=== PATIENT | female | born 1980 | race Caucasian/White ===

== ENCOUNTER → 2025-02-15 11:30 | Emergency (ER) | payer OTHER, SELFPAY ==
--- NOTE | ~2025-02-15 | CT_ITS ---
CT brain wo con Ordering provider: Helena Sethi APRN History: 44 years Female with . headache, hx drug use . Comparison: None. Technique: CT of the head without contrast. Radiation reduction technique utilized.The dose-length product was 983.67 mGy-cm. FINDINGS: BRAIN PARENCHYMA AND CSF SPACES: No midline shift, mass effect or hemorrhage. The brain parenchyma a nd CSF spaces are otherwise normal. VISUALIZED PARANASAL SINUSES: Well aerated. MASTOIDS: Well aerated. BONES: The bones appear intact. SOFT TISSUES: Visualized nasopharynx is normal. Superficial soft tissues are normal. IMPRESSION: No acute intracranial findings. Reviewed, dictated and finalized at location A.
[2025-02-15 11:34] VITALS: BP 124/98; PULSE 89; RESP 16; TEMP 36.4; O2SAT 100
--- NOTE | 2025-02-15 11:36 | ECG_ITS ---
Test Date: 2025-02-15 14:58:26 Measurements Intervals [place] Rate: 58 P: 36 PA: 120 QRS: 70 QRSD: 92 T: 51 QT: 505 QTc: 500 Interpretive Statements SINUS BRADYCARDIA MODERATE T-WAVE ABNORMALITY, CONSIDER ANTERIOR ISCHEMIA [-0.1+ mV T WAVE IN V3/V4] No previous ECG available for comparison Electronically Signed On 02-16-2025 15:39:29 CDT by Rene Rivera M.D.
--- NOTE | 2025-02-15 11:37 | ED_ITS ---
HPI - General Adult General Chief complaint: Unspecified Stated complaint: i don't feel right did meth x2 Time Seen by Provider: 02/15/25 11:35 Focused HPI: Patient is a 44-year-old female who presents to the ER from [facility]. She has been in rehab at [facility] and did meth twice this morning. Patient was Narcan once but reports I just do not feel right. She endorses headache, joint pain, abdominal pain, nausea and vomiting. Patient denies chest pain, shortness of breath, back pain, recent fevers. GENERAL: Ill-appearing, well-nourished, and in no acute distress. HEAD: Normocephalic, atraumatic. CHEST: Clear to auscultation. ?No respiratory distress. HEART: Regular rate and rhythm.? NEURO: ?Alert and oriented x3. Patient screened in triage and initial orders placed.? ?Additional care and disposition to be based upon?diagnostic testing and treatment. Related Data Allergies Allergy/AdvReac Type Severity Reaction Status Date / Time No Known Allergies Allergy Verified 02/15/25 11:31 Discharge Plan Discharge Patient Language: Swedish Follow-up/Referrals: PHYSICIAN NOT ON STAFF,NONSTAFF [Primary Care Provider] -
[2025-02-15 12:13] LABS: Basophils Percent Auto 0.5 % (0.2-1.2); Eosinophils Absolute Auto 0.3 K/mm3 (0-0.3); Eosinophils Percent Auto 2.9 % (0-4.4); Hematocrit 41.8 % (37.0-47.0); Hemoglobin 13.5 g/dL (12.0-15.0); Immature Granulocyte Absolute 0.02 K/mm3 (0.00-0.031); Immature Granulocyte Percent A 0.2 % (0-0.5); Lymphocytes Absolute Auto 1.79 K/mm3 (0.9-3.2); Lymphocytes Percent Auto 20.5 % (18.3-44.2); Mean Corpuscular HGB Conc 32.3 g/dl (32-36); Mean Corpuscular Hemoglobin 28.5 pg (26-34); Mean Corpuscular Volume 88.2 fl (80-100); Mean Platelet Volume 8.8 fl (7.4-10.4); Monocytes Absolute Auto 0.5 K/mm3 (0.1-0.6); Neutrophils Absolute Auto 6.1 K/mm3 (1.3-6.7); Neutrophils Percent Auto 69.9 % (45.5-73.1); Platelet Count Result 326 k/mm3 (150-375); Red Blood Count 4.74 M/mm3 (4.2-5.4); Red Cell Distribution Width 13.1 % (11.5-14.5); White Blood Count 8.7 K/mm3 (4.5-10.0)
[2025-02-15 12:23] LABS: Alanine Aminotransferase 21 U/L (6-35); Albumin Level 4.5 g/dL (3.5-5.1); Alkaline Phosphatase 92 U/L (38-126); Anion Gap 9 mmol/L (4-12); Aspartate Amino Transferase 22 U/L (14-36); Bilirubin,Total 0.3 mg/dL (0.2-1.3); Blood Urea Nitrogen 15 mg/dL (7-17); Calcium 9.4 mg/dL (8.4-10.2); Carbon Dioxide 22 mmol/L (22-30); Chloride 108 mmol/L (98-107); Estimated CRCL calculation 98 ml/min; Estimated Glomerular Filt Rate > 60; Glucose 101 mg/dL (65-110); Potassium 4.1 mmol/L (3.4-5.0); Sodium 139 mmol/L (137-145)
--- NOTE | 2025-02-15 12:29 | PC.NURSE ---
RN called pt's name in waiting room multiple times with no response. Pt was looking at RN and asking about another person while RN calling her name that she was not responding to. Pt then walked to intake desk and acted like she knew the patient checking in, placing her hand on other patients wheelchair and told gastrointestinal technician they were here together. The other patient stated that she does not know her. Pt was asked to have a seat back in waiting room by gastrointestinal technician. Pt was again called back to get an EKG completed. Pt refused to have EKG done, states that is for her heart and we have no business looking at her heart. RN explained this was specifically ordered by the provider who saw her, and pt continues to refuse.
--- NOTE | 2025-02-15 13:13 | PC.NURSE ---
Pt ambulated to exit with security. Pt left behind her pill bottles and refused to take them with her. Pt medication left behind was Diclofenac and Citalopram which were both turned into ED charge nurse.
--- NOTE | 2025-02-15 13:34 | PC.NURSE ---
This RN called [facility] and spoke with Albina ARIAS who states this pt has not been formally admitted to their facility yet.
--- NOTE | 2025-02-15 13:45 | PC.NURSE ---
ED security informed this RN that pt was refusing to get on bus and that pt was requesting PD to escort her. ED security contacted Jovanni CHRISTY
--- NOTE | 2025-02-15 14:08 | PC.NURSE ---
patient was walking up to patients in the waiting room and attempting to wheel patients in wheelchairs outside. patient was informed she needs to stop bothering other patients and she proceeded to go into the bathroom. patient was in the restroom for approx 30 minutes and was found in the bathroom with the door unlocked and she was completely naked in the restroom and was informed she needed to come out of the restroom due to other patient's needing to use it. patient was A&Ox4 and able to ambulate with steady gate. patient denied SI/HI to this RN
[2025-02-16 01:54] LABS: Add Urine Microscopic? NO; Appearance Urine Clear (Clear); Bilirubin Urine Negative (Negative); Blood Urine Negative (Negative); Color Urine Yellow (Yellow); Glucose Urine UA Negative (Negative); Ketones Urine Negative (Negative); Leukocyte Esterase Ur Negative LEU/UL (Negative); Nitrate Urine Negative (Negative); Protein Urine Negative (Negative); Urobilinogen Urine 0.2 mg/dL (<2.0)
--- OUTSIDE RECORDS SUMMARY | 2025-02-22 12:38 | XMS_ITS ---
Author Organization [facility] Address [address] [place] [address] Care Team Providers Care Call Center Operator Name Role Phone Sabra Kirkfer Primary Care Provider [phone] Briseida RODRIGUEZ Unavailable Unavailable Manjit Rodriguez Unavailable [phone] Allergies Allergen (clinical drug ingredient) Drug/Non Drug Allergy documented on EMR Reaction Allergy Type Onset Date Status Latex Latex Unknown Allergy Active Results Component Value Reference Range Notes Breathalyzer Reviewed date:02/19/2025 11:46:13 AM Interpretation: Performing Lab: Notes/Report: MICHOACANO 0.000 12 Panel Urine Drug Screen ( Not yet reviewed by provider) Interpretation: Performing Lab: Notes/Report: THC neg BENJAMIN neg MOP (OPI) neg AMP neg MET neg BAR neg BZO POS MDMA neg MTD neg OXY neg PCP neg BUP neg REASON FOR VISIT CRU Physical Social History Tobacco Use: Social History Observation Description Date Details (start date - stop date) Current Smoker NA - NA Tobacco Control (Standard) Question Answer Notes Tobacco use: Current smoker How often do you smoke cigarettes? Every day How many cigarettes a day do you smoke? 31 or mo re Problems Problem Type SNOMED Code ICD Code Onset Dates Problem Status W/U Status Risk Notes Problem Bipolar 1 disorder (589915504) Bipolar 1 disorder (F31.9) Active confirmed Problem Overweight (146346579) Over weight (E66.3) Active confirmed Vital Signs Weight 175.6 lbs 02/19/2025 Height 67 in 02/19/2025 BMI 27.5 kg/m2 02/19/2025 Blood pressure systolic 110 mm Hg 02/20/20 25 Blood pressure diastolic 68 mm Hg 025 Heart Rate 88 /min 02/19/2025 Oximetry 97 % 02/19/2025 Temperature 98.0 degrees Fahrenheit 02/20/20 25 Respiratory Rate 16 /min 02/19/2025 Encounters Encounter Location Date Provider Diagnosis [facility] [address] [facility] [place] [address] 02/19/2025 Manjit Celestinner Methamphetamine abus e F15.10 ; Bipolar 1 disorder F31.9 ; Dental infection K04.7 ; Adult general medical exam Z00.00 ; Exposure to potential infection Z20.9 ; Screening for diabetes mellitus Z13.1 ; Lipid screening Z13.220 ; Medication monitoring encounter Z51.81 ; Fatigue R53.83 and Over weight E66.3 Assessments Encounter Date Diagnosis (ICD Code) Assessment Notes Treatment Notes Treatment Clinical Notes Section Notes 02/19/2025 Methamphetamine abuse (ICD-10 - F15.10) unit protocol 02/19/2025 Bipolar 1 disorder (ICD-10 - F31.9) 02/19/2025 Dental infection (ICD-10 - K04.7) complete antibiotic 02/19/2025 Adult general medical exam (ICD-10 - Z00.00) 02/19/2025 Exposure to potential infection (ICD-10 - Z20.9) 02/19/2025 Screening for diabetes mellitus (ICD-10 - Z13.1) 02/19/2025 Lipid screening (ICD-10 - Z13.220) 02/19/2025 Medication monitoring encounter (ICD-10 - Z51.81) 02/19/2025 Fatigue (ICD-10 - R53.83) 02/19/2025 Over weight (ICD-10 - E66.3) Plan Of Treatment Pending Test Test Name Order Date 12 Panel Urine Drug Screen 02/19/2025 Future Test Test Name Order Date HIV Screen *HIV 1, 2 Ab, p24 Ag ([id number]) 02/19/2025 Hemoglobin A1c* 02/19/2025 CBC With Differential/Platelet* 02/20/20 25 Hepatitis B Surface Antigen (HBsAg Scree n) 02/19/2025 Hepatitis C Virus Antibody w/Rflx to Jose ntitative Real-time PCR ([id number]) 02/19/2025 Lipid Panel* 02/19/2025 CMP 14 Comprehensive Metabolic Panel* TSH Rfx on Abnormal to Free T4 QuantiFERON-TB Gold Plus ([id number]) 2024 Rapid Plasma Reagin (RPR) Te st With Reflex to Quantitative RPR and Confirmatory Treponema pallidum Antibodies 02/19/2025 Next Appt Details Follow Up: prn, Reason: WHIL E IN UNIT Provider Name:Daisy Harmon sd, 02/23/2025 02:00:00 PM, [address] [facility], [place], [address], Progress Notes * Layla MIXDOB:[birth year] (44 yo F)Acc No.[id number]:02/19/2025 Patient: Layla GRAVES Rebecca Provider: Briseida Rodriguez :1980 A ge:44 Y S ex:Female Date:02/19/2025 Address:[address] [place], [place] [id number] Pcp:Lizette Kirk Subjective: * Chief Complaints: * C RU Physical * HPI: S creening: [place] Suicide Severity Rating Scale (LF) D o you want to initiate with S creener form 1 . Wish to be : Have you wished you were or wished you could go to sleep and not wake up? N o 2 . Suicidal Thoughts: Have you actually had any thoughts of killing yourself? N o 6 . Suicide Behavior Question: Have you ever done anything,started to do anything, or prepared to end your life? N o I nterpretation: L ow Risk D epression Screening: PHQ-9 L ittle interest or pleasure in doing things?Several days F eeling down, depressed, or hopeless S everal days T rouble falling or staying asleep, or sleeping too much N ot at all F eeling tired or having little energy S everal days P oor appetite or overeating N ot at all F eeling bad about yourself or that you are a failure, or have let yourself or your family down S everal days T rouble concentrating on things, such as reading the newspaper or watching television S everal M oving or speaking so slowly that other people could have noticed; or the opposite, being so fidgety or restless that you have been moving around a lot more than usual N ot at all T houghts that you would be better off or of hurting yourself in some way N ot at all T otal Score 5 I nterpretation M ild Depression I nterim 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 METH USE. [facility] LEFT [facility]. NO MEDS GIVEN. LEFT TO SEEK TX FOR LEFT UPPER JAW FX TOOTH AND DENTAL INFECTION. CAME TO [facility] 02/15. LAST METH USE 02/15. WAS USING DAILY. DENIED OTHER SUBSTANCE USE. 02/15 WENT TO [facility] THEN TO [facility]. NEW MEDS STARTED. WAS DX MANIC PHASE OF BIPOLAR 1. PRIOR HX OF BIPOLAR 1 FOR SEVERAL YEARS. TX BY [facility] PCP DUE TO LACK OF PSYCH ACCESS. LEFT UPPER JAW DENTAL PAIN IMPROVING WITH AMOXICLAV. NO FEVER. P reventative Health and Wellness follow-up: . * ROS: B asic ROS: Admits P sychiatric Condition. * Medical History: * Surgical History: C eserean Section 2010Skin cancer removed 1992 * Hospitalization/Major Diagno stic Procedure: M ental health crisis 01/2025 * Family History: F ather: alive. M other: alive. 7 brother(s) , 3 sister(s) - healthy. 2 son(s) , 2 daughter(s) . . * Social History: P rimary Social History: L iving Arrangement L iving Arrangement: I ndependent Living I s this a supportive environment? N o Patient states is an addict who is in need of treatment . Single Question Alcohol Screening H ow may times in the past year have you had (4 for women, or 5 for men) or more drinks in a day? 0 T obacco Use: T obacco Control (Standard) T obacco use: C urrent smoker H ow often do you smoke cigarettes? E very day H ow many cigarettes a day do you smoke? 3 1 or more * Medications: * Allergies: L atexno[Allergies Verified] Objective: * Vitals: I nitials: TT, Wt:175.6, Ht: 67, BMI:27.5, BP:110/68, HR:88, Oxygen sat %:97, Temp:98.0, RR:16, LMP: 02/18/2025, Pain scale:7. * Examination: G eneral Examination: GENERAL APPEARANCE: w ell developed, well nourished, in no acute distress. HEAD: n ormocephalic, atraumatic. EYES: P ERRLA, sclera and conjunctiva clear. EARS External ears intact. NOSE: n candy patent, no lesions, septum intact. ORAL CAVITY: m ucosa moist. THROAT: n o erythema, no exudate, pharynx normal. NECK/THYROID: n o JVD, no goiter. SKIN: w arm and dry, no rashes. HEART: r egular rate and rhythm, no murmurs. LUNGS: r espirations regular and easy, clear to auscultation bilaterally. ABDOMEN: b owel sounds present, soft, nontender, nondistended, no masses palpable, no organomegaly . MUSCULOSKELETAL: n o joint deformity, swelling, redness, or warmth , BENJAMIN upper and lower extremities. EXTREMITIES: n o clubbing, cyanosis, or edema. NEUROLOGIC: c ranial nerves 2-12 grossly intact. A ctivity Permissions and Medication Self Administration: Activity Level & Medication Self-Administration Permissions? A ctivity Level Permitted: T he patient/client may fully take part in physical fitness programming including aerobic, muscular strength, and flexibility training without restriction. M edication Self-Administration Permissions:?Medications may be self-administered by the patient/client under the supervision of approved staff or administered by nursing staff. Assessment: * Assessment: 1. M ethamphetamine abuse - F15.10 (Primary) 2 . B ipolar 1 disorder - F31.9 3 . D ental infection - K04.7 4 . A dult general medical exam - Z00.00 5 . E xposure to potential infection - Z20.9 6 . Screening for diabetes mellitus - Z13.1 7 . L ipid screening - Z13.220 ? 8 . M edication monitoring encounter - Z51.81 9 . F atigue - R53.83 1 0. O lovely weight - E66.3 Plan: * Treatment: Value Reference Range T HC neg * C OC neg * M OP (OPI) neg * A MP neg * M ET neg * B AR neg * B ZO POS * M DMA neg * M TD neg * O XY neg * P CP neg * B UP neg Clinical Notes: unit protocol??2.?Dental infection?LAB: CBC With Differential/Platelet* (Ordered for 02/19/2025) (Collection Date & Time - 02/19/2025) Clinical Notes: complete antibiotic??3.?Exposure to potential infection?LAB: Rapid Plasma Reagin (RPR) Test With Reflex to Quantitative RPR and Confirmatory Treponema pallidum Antibodies (Ordered for 02/19/2025) (Collection Date & Time - 02/19/2025) ?LAB: HIV Screen *HIV 1, 2 Ab, p24 Ag ([id number]) (Ordered for 02/19/2025) (Collection Date & Time - 02/19/2025) ?LAB: Hepatitis B Surface Antigen (HBsAg Screen) (Ordered for 02/19/2025) (Collection Date & Time - 02/19/2025) ?LAB: Hepatitis C Virus Antibody w/Rflx to Quantitative Real-time PCR ([id number]) (Ordered for 02/19/2025) (Collection Date & Time - 02/19/2025) ?LAB: QuantiFERON-TB Gold Plus ([id number]) (Ordered for 02/19/2025) (Collection Date & Time - 02/19/2025)4.?Screening for diabetes mellitus?LAB: Hemoglobin A1c* (Ordered for 02/19/2025) (Collection Date & Time - 02/19/2025)5.?Lipid screening?LAB: Lipid Panel* (Ordered for 02/19/2025) (Collection Date & Time - 02/19/2025)6.?Medication monitoring encounter?LAB: CMP 14 Comprehensive Metabolic Panel* (Ordered for 02/19/2025) (Collection Date & Time - 02/19/2025)7.?Fatigue?LAB: TSH Rfx on Abnormal to Free T4 (Ordered for 02/19/2025) (Collection Date & Time - 02/19/2025) * Recommended Wellness and Pre vention Guidelines: * S tatus A lert L ast Done N ext Due A ction Taken N ONCOMPLIANT B reast cancer screening - 0 02/19/2025 - N ONCOMPLIANT C ervical cancer screening - 0 02/19/2025 - N ONCOMPLIANT M ammogram, Screening - 0 02/19/2025 - N ONCOMPLIANT P ap +CtNg - 0 02/19/2025 - * Procedure Codes: 9 9000 SPECIMEN [id number] BODY MASS INDEX DOCD * Preventive Medicine: Counseling: S MOKING: Patient counselled on the dangers of tobacco use and urged to quit. . C are goal follow-up plan: BMI management provided Y es Above Normal BMI Follow-up L ifestyle education regarding diet * Follow Up: p rn (Reason: WHILE IN UNIT) * * Sign off status: Completed true * Provider: Briseida Rodriguez Date: 02/19/2025 Generated for Kandi longo/Nanci/Ricoitting on: 0 02/22/2025 12:38 PM CDT History and Physical Notes * HPI (History of Present Illness) Category Sub-Category Detail Notes Category Not es Depression Screening PHQ-9 Little inte rest or pleasure in doing things: Several days Feeling down, depressed, or hopeless: Se veral days Trouble falling or staying asleep, or sl eeping too much: Not at all Feeling tired or having little energy: S everal days Poor appetite or overeating: Not at all Feeling bad about yourself o r that you are a failure, or have let yourself or your family down: Several days Trouble concentrating on thi ngs, such as reading the newspaper or watching television: Several days Moving or speaking so slowly that other people could have noticed; or the opposite, being so fidgety or restless that you have been moving around a lot more than usual: Not at all Thoughts that you would be b raeann off or of hurting yourself in some way: Not at all Total Score: 5 Interpretation: Mild Depression Screening [place] Suicide Sev erity Rating Scale (LF) Do you want to initiate with: Screener form 1. Wish to be : Have you wished you were or wished you could go to sleep and not wake up?: No 2. Suicidal Thoughts: Have you actually had any thoughts of killing yourself?: No 6. Suicide Behavior Question: Have you ever done anything,started to do anything, or prepared to end your life?: No Interpretation:: Low Risk [facility] Health and Wellness follow-up . Examination Category Sub-Category Detail Notes Category Not es General Examination GENERAL APPEARANCE: well dev eloped, well nourished, in no acute distress HEAD: normocephalic, atrau matic EYES: PERRLA, sclera and c onjunctiva clear EARS External ears intact NOSE: nares patent, no les ions, septum intact THROAT: no erythema, no exud ate, pharynx normal NECK/THYROID: no JVD, no goiter HEART: regular rate and rhy thm, no murmurs LUNGS: respirations regular and easy, clear to auscultation bilaterally ABDOMEN: bowel sounds present , soft, nontender, nondistended, no masses palpable, no organomegaly NEUROLOGIC: cranial nerves 2-12 grossly intact SKIN: warm and dry, no jarrell hes EXTREMITIES: no clubbing, cyanosi s, or edema MUSCULOSKELETAL: no joint deformity, swelling, redness, or warmth , BENJAMIN upper and lower extremities ORAL CAVITY: mucosa moist Activity Permissions and Medication Self Administration Activity Level & Medication Self-Administration Permissions Activity Level Permitted:: The patient/client may fully take part in physical fitness programming including aerobic, muscular strength, and flexibility training without restriction. Medication Self-Administrati on Permissions:: Medications may be self- administered by the patient/client under the supervision of approved staff or administered by nursing staff.
--- OUTSIDE RECORDS SUMMARY | 2025-02-22 12:38 | XMS_ITS | Continuity of Care Document ---
Author Organization [facility] Address [address] [place] [address] Phone Care Team Providers Care Movie Operator Name Role Phone Unavailable Unavailable Unavailable Procedures Procedure Date Comprehensive Oral Evaluatio n New Or Established Patient Bitewings Four Films Panoramic Film First Visit With Dental Advance Directives Directive Yes / No Effective Date File Name No Information Encounters Encounter Description Practice Location Reason(s) For Visit Diagnoses Date Provider Providers Copied on Encounter [facility], [address], [place], [place], [id number], [place] tel:[phone] [facility] No Information 3 No Information Family History Family Member Type Diagnosis Age At Onset No Information Payers Payer name Insurance type Covered constitution party ID Authoriza tion(s) No Information Social History Type Description Quantity Date Captured Comments Sex Female Smoking Status No Information Chief Complaint And Reason For Visit No Information Reason For Referral Reason For Referral No Information History Of Present Illness Encounter Date Complaint History Of Prese nt Illness No Information Functional Status Date Functional Assessmen t No Information Instructions Date Instruction Additional Infor mation No Information Assessments Type Assessment Date No Information Patient Care Teams Name Effective Dates (start - stop) Status Members No Information
--- OUTSIDE RECORDS SUMMARY | 2025-02-22 12:38 | XMS_ITS | Patient Health Record ---
Author Organization [facility] Address [address] [place] [address] Care Team Providers Care Business Intelligence Engineer Name Role Phone Sabra Kirkfer Primary Care Provider [phone] Briseida RODRIGUEZ Unavailable Unavailable Manjit Rodriguez Unavailable [phone] Saray Rodríguez Unavailable [phone] Allergies Allergen (clinical drug ingredient) Drug/Non Drug Allergy documented on EMR Reaction Allergy Type Onset Date Status Latex Latex Unknown Allergy Active Results Component Value Reference Range Notes 12 Panel Urine Drug Screen ( Not yet reviewed by provider) Interpretation: Performing Lab: Notes/Report: THC neg BENJAMIN neg MOP (OPI) neg AMP neg MET neg BAR neg BZO POS MDMA neg MTD neg OXY neg PCP neg BUP neg Breathalyzer Reviewed date:02/19/2025 11:46:13 AM Interpretation: Performing Lab: Notes/Report: MICHOACANO 0.000 Reason For Referral No Information Social History Tobacco Use: Social History Observation Description Date Details (start date - stop date) Current Smoker NA - NA PRAPARE Question Answer Notes What is your current housing situation? I have h ousing Are you worried about losing your housing? No What is the highest level of school that you have finished? More than high school What is your current work situation? Oth erwise unemployed but not seeking work (ex. 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 Check all that apply Food,Clothing,Phone Has lack of transportation k ept you from medical appointments, meetings, work or from getting things needed for daily living? Yes, it has kept me from medical appointments or from getting my medications,Yes, it has kept me from non-medical meetings, appointments, work, or getting things needed for daily living How often do you see or talk to people that you care about and feel close to? (For example: talking to friends on the phone, visiting friends or family, going to worship or club meetings) More than 5 times a week How stressed are you? Stress is when someone feels tense, nervous, anxious, or can\t sleep at night because their mind is troubled Not at all In the past year have you sp ent more than 2 nights in a row in a halfway, jail, longterm center, or juvenile correctional facility? No Are you a refugee? I choose not to answer this q uestion What country are you from? I choose not to answe r this question Do you feel physically and e motionally safe where you currently live? Yes In the past year, have you b een afraid of your partner or ex-partner? Yes PRAPARE Score: 8 Tobacco Control (Standard) Question Answer Notes Tobacco use: Current smoker How often do you smoke cigarettes? Every day How many cigarettes a day do you smoke? 31 or mo re Problems Problem Type SNOMED Code ICD Code Onset Dates Problem Status W/U Status Risk Notes Problem Bipolar 1 disorder (734978827) Bipolar 1 disorder (F31.9) Active confirmed Problem Overweight (931929879) Over weight (E66.3) Active confirmed Problem Methamphetamine abuse (949451130) Methamphetamine abuse (F15.10) Active confirmed Vital Signs Heart Rate 88 /min 02/19/2025 Temperature 98.0 degrees Fahrenheit 02/19/2025 Respiratory Rate 16 /min 02/19/2025 Blood pressure diastolic 68 mm Hg 02/19/2025 Oximetry 97 % 02/19/2025 Height 67 in 02/19/2025 Blood pressure systolic 110 mm Hg 02/19/2025 Weight 175.6 lbs 02/19/2025 BMI 27.5 kg/m2 02/19/2025 Encounters Encounter Location Date Provider Diagnosis [facility] [address] [place] [address] 02/15/2025 Lizette Kirk [facility] [address] [place] [address] 02/15/2025 Saray Rodríguez Methamphetamine abus e F15.10 [facility] [address] [facility] [place] [address] 02/19/2025 Manjit Rodriguez Methamphetamine abus e F15.10 ; Bipolar 1 disorder F31.9 ; Dental infection K04.7 ; Adult general medical exam Z00.00 ; Exposure to potential infection Z20.9 ; Screening for diabetes mellitus Z13.1 ; Lipid screening Z13.220 ; Medication monitoring encounter Z51.81 ; Fatigue R53.83 and Over weight E66.3 [facility] [address] [place] [address] 02/19/2025 Saray Rodríguez Assessments Encounter Date Diagnosis (ICD Code) Assessment Notes Treatment Notes Treatment Clinical Notes Section Notes 02/15/2025 Methamphetamine abuse (ICD-10 - F15.10) 02/19/2025 Bipolar 1 disorder (ICD-10 - F31.9) 02/19/2025 Methamphetamine abuse (ICD-10 - F15.10) unit protocol 02/19/2025 Dental infection (ICD-10 - K04.7) complete antibiotic 02/19/2025 Adult general medical exam (ICD-10 - Z00.00) 02/19/2025 Exposure to potential infection (ICD-10 - Z20.9) 02/19/2025 Screening for diabetes mellitus (ICD-10 - Z13.1) 02/19/2025 Lipid screening (ICD-10 - Z13.220) 02/19/2025 Medication monitoring encounter (ICD-10 - Z51.81) 02/19/2025 Fatigue (ICD-10 - R53.83) 02/19/2025 Over weight (ICD-10 - E66.3) 02/15/2025 Other Clinician met w [facility] client to assess needs for residential services. Clinician gathered information regarding historical presentation of mental health and substance use symptoms including withdrawal, HIV Risk assessment, psychiatric hospitalization history and presenting concern. Clinician conducted PHQ9 and CSSRS assessments as well as social drivers of health screening for the purposes of identifying additional service needs. 911 was contacted at the end of the appointment due to medical emergency. Client taken by ambulance to [facility]. 02/19/2025 Other Clinician met w [facility] client to assess needs for residential services. Clinician gathered information regarding historical presentation of mental health and substance use symptoms including withdrawal, HIV Risk assessment, psychiatric hospitalization history and presenting concern. Clinician conducted PHQ9 and CSSRS assessments as well as social drivers of health screening for the purposes of identifying additional service needs. Plan Of Treatment Pending Test Test Name Order Date 12 Panel Urine Drug Screen 02/19/2025 Future Test Test Name Order Date HIV Screen *HIV 1, 2 Ab, p24 Ag ([id number]) 02/19/2025 Hemoglobin A1c* 02/19/2025 CBC With Differential/Platelet* 02/20/20 25 Hepatitis B Surface Antigen (HBsAg Scree n) 02/19/2025 Hepatitis C Virus Antibody w/Rflx to Jose ntitative Real-time PCR ([id number]) 02/19/2025 Lipid Panel* 02/19/2025 CMP 14 Comprehensive Metabolic Panel* TSH Rfx on Abnormal to Free T4 QuantiFERON-TB Gold Plus ([id number]) 2024 Rapid Plasma Reagin (RPR) Te st With Reflex to Quantitative RPR and Confirmatory Treponema pallidum Antibodies 02/19/2025 Next Appt Details Provider Name:Daisy Harmon or, 02/23/2025 02:00:00 PM, [address] [facility] [place], [address], Insurance Providers Payer Name Payer Address Payer Phone Subscriber Number Group Number Insured Name Patient Relationship to Insured Coverage Start Date Coverage End Date [employer] Attn Claims Department [address] [place] [address] [phone] [id number] Layla Gil Self - patient is the insured 5 [employer] Att[employer] Claims Department [address] [place] [address] [phone] [phone] Layla Gil Self - patient is the insured 5 [employer] Att[employer] Claims Department [address] [place] [phone] [id number] Layla Gil Self - patient is the insured 5 Medical (General) History Medical History History ICD Code Bipolar Disorder Spinal disorder Surgical History Surgery Date(Month/Year) Ceserean Section 2010 Skin cancer removed 1992 Hospitalization History Reason Date(Month/Year) Mental health crisis 01/2025
--- OUTSIDE RECORDS SUMMARY | 2025-02-22 12:38 | XMS_ITS ---
Author Organization [facility] Address [address] [place] [address] Care Team Providers Care Cartridge Maker Name Role Phone Lizette Kirk Primary Care Provider Briseida RODRIGUEZ Unavailable Unavailable Saray Rodríguez Unavailable [phone] REASON FOR VISIT Detox aTBC Problems Problem Type SNOMED Code ICD Code Onset Dates Problem Status W/U Status Risk Notes Problem Methamphetamine abuse ([id number]) Methamphetamine abuse (F15.10) Active confirmed Encounters Encounter Location Date Provider Diagnosis [facility] [address] [place] [address] 02/15/2025 Saray Rodríguez Methamphetamine abus e F15.10 Assessments Encounter Date Diagnosis (ICD Code) Assessment Notes Treatment Notes Treatment Clinical Notes Section Notes 02/15/2025 Methamphetamine abuse (ICD-10 - F15.10) 02/15/2025 Other Clinician met w [facility] client to assess needs for residential [...] medical emergency. Client taken by ambulance to [facility]. Plan Of Treatment Treatment Notes Assessment Notes [...] medical emergency. Client taken by ambulance to [facility]. Next Appt Details Follow Up: prn, Reason: Provider Name:Daisy B Eden ut, 02/23/2025 02:00:00 PM, [address] [facility], [place], [address], Progress Notes * Layla MIXDOB:[birth year] (44 yo F)Acc No.[id number]:02/15/2025 Patient: Layla GRAVES Provider: Lc Rodríguez LCSW :1980 A ge:44 Y S ex:Female Date:02/15/2025 Address:[address] [place], [place] [id number] Pcp:Lizette Kirk Subjective: * Chief Complaints: * D etox aTBC * HPI: I nitial: Issues discussed: P [...] . Sorin izaguirre's action: Sorin cole contact [facility] and was informed that this individual was not eligible for their program due DOC being methamphetamine. Due to increased nonresponsiveness, EMS was contacted and patient was taken by ambulance to [facility] Emergency Room. Clinician coordinated with Recovery Support [...] to increasing nonresponsiveness. . * Medical History: * Surgical History: * Hospitalization/Major Diagno stic Procedure: * Medications: Objective: * Vitals: * Examination: M ental Status Exam: ATTENTION AND CONCENTRATION I mpaired attention/concentration,Impaired Level of Consciousness. APPEARANCE I nappropriate. ATTITUDE AND BEHAVIOR O ther: increasingly nonresponsive.? EYE CONTACT P oor. AFFECT F lat. Assessment: * Assessment: 1. M ethamphetamine abuse - F15.10 (Primary) Plan: * Treatment: * Procedure Codes: 9 0791 PSYCH DIAGNOSTIC EVALUATION, Modifiers: AJ [id number] [facility] [id number] Referring to Distribution Field Engineer * Follow Up: p rn * * Sign off status: Completed true * Provider: Lc Rodríguez, AGRICULTURE INSPECTOR Date: 02/15/2025 Generated for Kandi longo/Nanci/eTransmitting on: 0 02/22/2025 12:38 PM CDT History [...] setting. Counselor's action: Clinican contact [facility] and was informed that this individual was not eligible for their program due DOC being methamphetamine. Due to increased nonresponsiveness, EMS was contacted and patient was taken by ambulance to [facility] Emergency Room. Clinician coordinated with Recovery Support [...]
--- OUTSIDE RECORDS SUMMARY | 2025-02-22 12:38 | XMS_ITS ---
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 Stress is when someone feels tense, nervous, anxious, or can\t sleep at night because their mind is troubled Not at all In the past year have you sp ent more than 2 nights in a row in a skilled nursing, long-term, snf center, or juvenile correctional facility? No Are [...] do you smoke? 31 or mo re Encounters Encounter Location Date Provider Diagnosis [facility] [place] [address] [place] [address] 02/19/2025 Saray Rodríguez Assessments Encounter Date Diagnosis (ICD Code) Assessment Notes Treatment Notes Treatment Clinical Notes Section Notes 02/19/2025 Other Clinician met w [facility] client to assess needs for residential [...] Notes Assessment Notes Other Clinician met with raffy whitehead to assess needs for residential services. Clinician gathered information regarding historical presentation of mental health and substance use symptoms including withdrawal, HIV Risk assessment, psychiatric hospitalization history and presenting concern. Clinician conducted PHQ9 and CSSRS assessments as well as social drivers of health screening for the purposes of identifying additional service needs. Next Appt Details Provider Name:Daisy Harmon co, 02/23/2025 02:00:00 PM, [address] [facility], [place], [address], Progress Notes * Layla MIXDOB:[birth year] (44 yo F)Acc No.[id number]:02/19/2025 Patient: Layla GRAVES Provider: Lc Rodríguez LCSW :1980 A ge:44 Y S ex:Female Date:02/19/2025 Address:[address] [place], [place] [id number] Pcp:Lizette Kirk Subjective: * Chief Complaints: * C RU admit * HPI: P sychiatric Assessment - Current Symptoms: Primary concern today A dmitting today for Detox Residential program. O [place] of Mental Health Symptoms b ipolar disorder with manic tendancies, I can't tell what is real and what isn't whe I'm manic , high anxiety, hx of anxiety attacks. H istory of Psychiatric Hospitalizations v oluntarily hospitalized in 2009, post a factor, after suicide attempt. S ubstance Use: Current Use Patterns m ethamphetamine, smoking, snorting, daily, hourly , 9.25g daily,. S ubstance of Choice m ethamphetamine. H istory of substance use y es, f/u methamphetamine a t 21 y/o. H x of Withdrawal h ot/cold sweats, grind teeth, constantly hungry and tired. H IV Risk Assessment Screening: Sexual Risk Behaviors: 1 . Are you sexually active? (If no skip question 2) Y es, 2 . Do you engage in sexual activity without protection against STIs??No. H IV/AIDS/Hepatitis Risk Assessment 1 . Have you ever shared needles or equipment for injecting drugs, tattoos, or piercings with others? N o, 2 . Have you ever had unprotected sex with someone you think might be infected with an STI or HIV (such as someone who injected drugs, who was diagnoed with or treated for an STI or hepatitis, has had mulitiple sex partners, or who has exchanged sex for drugs or money)? N o, 3 . Have you ever had unprotected vaginal or anal intercourse with more than 1 sex partner? Y es, 4 . Have you ever been diagnosed with or treated for an STI, hepatitis, or tuberculosis? N o, 5 . Have you ever had an unexplained fever or illness of unknown cause (not including the common cold)? N o, 6 . Have you ever been told that you have an infection related to a weak immune system ? N o, 7 . If YES to any of the above (including sexual risk behaviors), have you been tested in the past year for HIV/AIDS and/or Hepatitis C? Y es last tested at [place] earlier this month. Required for Residential Admits. a TBC For Mental Health Services: Who Is Your Primary Care Provider? D o You Have A PCP? Y es Shobha RI, Antonina Ordonez ate of last physical exam 0 -2024. D o You Have A Psychiatric Provider? D o You Have A Psychiatric Provider? Y es needs appt. D o You Have Any Other Professional Supports? D o You Have Any Other Professional Supports? N o. C onsent Forms Completed During Appointment C onsent Forms Completed N one Needed at this time. A ssessment of Social Determinants of Health::: Has A PRAPARE Been Completed In The Past Year? H as a PRAPARE Been Completed In The Past Year? Y es, W as It Completed Today Using [employer]? Y es.? D epression Screening: PHQ-9 L ittle interest or pleasure in doing things N early every day, F eeling down, depressed, or hopeless N early every day, T rouble falling or staying asleep, or sleeping too much N early every day, F eeling tired or having little energy N early every day, P oor appetite or overeating N ot at all, F eeling bad about yourself or that you are a failure, or have let yourself or your family down N early every day, T rouble concentrating on things, such as reading the newspaper or watching television N early every day, M oving or speaking so slowly that other people could have noticed; or the opposite, being so fidgety or restless that you have been moving around a lot more than usual N early every day, T houghts that you would be better off or of hurting yourself in some way S everal days (Consider Suicide Assessment Risk), T otal Score 2 2, I nterpretation S evere Depression. D epression Screening PHQ9: c/o PHQ-2 (2015 Edition). PHQ-9 T otal Score 22. P HQ9 D epression Screening Finding P ositive, F ollow-up Depression W arm hand-off to staff. S creening: Haakon Suicide Severity Rating Scale (LF) D o you want to initiate with L olegario time form, 1 .a. Wish to be (Lifetime: Time He/She [place] Most Suicidal): Have you wished you were or wished you could go to sleep and not wake up? Y es, 1 .b. Wish to be (Past 1 month): Have you wished you were or wished you could go to sleep and not wake up? Y es, 2 .a. Non-Specific Active Suicidal Thoughts (Lifetime: Time He/She [place] Most Suicidal): Have you actually had any thoughts of killing yourself? N o, 2 .b. Non-Specific Active Suicidal Thoughts (Past 1 month): Have you actually had any thoughts of killing yourself? N o, 3 .a. Active Suicidal Ideation with Any Methods (Not Plan) without Intent to Act (Lifetime: Time He/She [place] Most Suicidal): Have you been thinking about how you might do this? N o, 3 .b. Active Suicidal Ideation with Any Methods (Not Plan) without Intent to Act (Past 1 month): Have you been thinking about how you might do this? N o, 4 .a. Active Suicidal Ideation with Some Intent to Act, without Specific Plan (Lifetime: Time He/She [place] Most Suicidal): Have you had these thoughts and had some intention of acting on them? N o, 4 .b. Active Suicidal Ideation with Some Intent to Act, without Specific Plan (Past 1 month): Have you had these thoughts and had some intention of acting on them? N o, 5 .a. Active Suicidal Ideation with Specific Plan and Intent (Lifetime: Time He/She [place] Most Suicidal): Have you started to work out or worked out the details of how to kill yourself? Do you intend to carry out this plan? Y es, 5 .b. Active Suicidal Ideation with Specific Plan and Intent (Past 1 month): Have you started to work out or worked out the details of how to kill yourself? Do you intend to carry out this plan? N o, L ifetime: Most Severe Ideation Type # (1-5): 5 , R ecent: Most Severe Ideation Type # (1-5):?5, H ow many times have you had these thoughts? (Lifetime: Time He/She [place] Most Suicidal)?3) 2-5 times in week. B H CSSRS Follow Up and Treatment Recommendations: CSSRS Follow UP and Treatment Recommendations. CSSRS Follow Up and Treatment Recommendation A ssessment?CSSRS Full Completed, F ollow Up: Document recommendations for suicide focused treatment P atient referred for therapy services with [facility] or outside provider for ongoing treatment, R lila Provided [place], R camachoces Provided SR W arm Support Peer Line [phone], [place] Admission Line [phone], [place] Crisis Line [phone], National Suicide Prevention Lifeline 988, Youth Cares Line . * Medical History: * Medications: Objective: * Vitals: * Examination: M ental Status Exam: ATTENTION AND CONCENTRATION N o deficits. APPEARANCE D isheveled. ATTITUDE AND BEHAVIOR C ooperative,Demanding. EYE CONTACT A verted. AFFECT B lunted. MOOD I rritated. INSIGHT F air, . JUDGMENT P oor, . Assessment: Plan: * Treatment: * Procedure Codes: 9 0791 PSYCH DIAGNOSTIC EVALUATION, Modifiers: DARREN T1016 Case [id number] [facility] * * Sign off status: Completed true * Provider: Lc Rodríguez LCSW Date: 02/19/2025 Generated for Kandi longo/Nanci/Joel on: 0 02/22/2025 12:37 PM CDT History and Physical Notes * HPI (History of Present Illness) Category Sub-Category Detail Notes Category Not es Depression Screening PHQ9 PHQ-9 Total Score 22 PHQ9 Depression Screening Finding: Po sitive Follow-up Depression: Warm hand-off to B H staff Depression Screening PHQ-9 Little inte rest or pleasure in doing things: Nearly every day Feeling down, depressed, or hopeless: Ne cheri every day Trouble falling or staying asleep, or sl eeping too much: Nearly every day Feeling tired or having little energy: N early every day Poor appetite or overeating: Not at all Feeling bad about yourself o r that you are a failure, or have let yourself or your family down: Nearly every day Trouble concentrating on thi ngs, such as reading the newspaper or watching television: Nearly every day Moving or speaking so slowly that other people could have noticed; or the opposite, being so fidgety or restless that you have been moving around a lot more than usual: Nearly every day Thoughts that you would be b raeann off or of hurting yourself in some way: Several days (Consider Suicide Assessment Risk) Total Score: 22 Interpretation: Severe Depression Psychiatric Assessment - Current Symptoms Primary concern today Admitting today for Detox Residential program Overview of Mental Health Symptoms bipol ar disorder with manic tendancies, I can't tell what is real and what isn't whe I'm manic , high anxiety, hx of anxiety attacks History of Psychiatric Hospitalizations voluntarily hospitalized in 2009, post a factor, after suicide attempt Substance Use History of substance use yes, f/u metham phetamine at 21 y/o Hx of Withdrawal hot/cold sweats, gri nd teeth, constantly hungry and tired Substance of Choice methamphetamine Current Use Patterns methamphetamine, sm oking, snorting, daily, hourly , 9.25g daily, Screening Haakon Suicide Sev erity Rating Scale (LF) Do you want to initiate with: Life time form 1.a. Wish to be (Lifetime: Time He/She [place] Most Suicidal): Have you wished you were or wished you could go to sleep and not wake up?: Yes 1.b. Wish to be (Past 1 month): Have you wished you were or wished you could go to sleep and not wake up?: Yes 2.a. Non-Specific Active Suicidal Thoughts (Lifetime: Time He/She [place] Most Suicidal): Have you actually had any thoughts of killing yourself?: No 2.b. Non-Specific Active Suicidal Thoughts (Past 1 month): Have you actually had any thoughts of killing yourself?: No 3.a. Active Suicidal Ideation with Any Methods (Not Plan) without Intent to Act (Lifetime: Time He/She [place] Most Suicidal): Have you been thinking about how you might do this?: No 3.b. Active Suicidal Ideation with Any Methods (Not Plan) without Intent to Act (Past 1 month): Have you been thinking about how you might do this?: No 4.a. Active Suicidal Ideation with Some Intent to Act, without Specific Plan (Lifetime: Time He/She [place] Most Suicidal): Have you had these thoughts and had some intention of acting on them?: No 4.b. Active Suicidal Ideation with Some Intent to Act, without Specific Plan (Past 1 month): Have you had these thoughts and had some intention of acting on them?: No 5.a. Active Suicidal Ideation with Specific Plan and Intent (Lifetime: Time He/She [place] Most Suicidal): Have you started to work out or worked out the details of how to kill yourself? Do you intend to carry out this plan?: Yes 5.b. Active Suicidal Ideation with Specific Plan and Intent (Past 1 month): Have you started to work out or worked out the details of how to kill yourself? Do you intend to carry out this plan?: No Lifetime: Most Severe Ideation Type # (1-5):: 5 Recent: Most Severe Ideation Type # (1-5):: 5 How many times have you had these thoughts? (Lifetime: Time He/She [place] Most Suicidal): 3) 2-5 times in week HIV Risk Assessment Screening Sexual Risk Behaviors: 1. Are you sexually active? (If no skip question 2): Yes Required for Residential Admits 2. Do you engage in sexual activity with out protection against STIs?: No HIV/AIDS/Hepatitis Risk Assessment 1. Phipps ve you ever shared needles or equipment for injecting drugs, tattoos, or piercings with others?: No 2. Have you ever had unprote cted sex with someone you think might be infected with an STI or HIV (such as someone who injected drugs, who was diagnoed with or treated for an STI or hepatitis, has had mulitiple sex partners, or who has exchanged sex for drugs or money)?: No 3. Have you ever had unprote cted vaginal or anal intercourse with more than 1 sex partner?: Yes 4. Have you ever been diagno sed with or treated for an STI, hepatitis, or tuberculosis?: No 5. Have you ever had an unex plained fever or illness of unknown cause (not including the common cold)?: No 6. Have you ever been told t hat you have an infection related to a weak immune system ?: No 7. If YES to any of the abov e (including sexual risk behaviors), have you been tested in the past year for HIV/AIDS and/or Hepatitis C?: Yes last tested at [facility] earlier this month CSSRS Follow Up and Treatment Recommendations CSSRS Follow Up and Treatment Recommendation Assessment: CSSRS Full Completed Follow Up: Document recommen dations for suicide focused treatment: Patient referred for therapy services with [facility] or outside provider for ongoing treatment Resources Provided: [facility] Resources Provided SR: Warm Support Peer Line [phone], [place] Admission Line [phone], [place] Crisis Line [phone], National Suicide Prevention Lifeline 988, Youth Cares Line Assessment of Social Determinants of Health:: Has A PRAPARE Been Completed In The Past Year? Has a PRAPARE Been Completed In The Past Year?: Yes Was It Completed Today Using SmartForm?: Yes aT For Mental Health Services Who Is Your Primary Care Provider? Do You Have A PCP?: Yes CANDY Yeager Dr Shieke Date of last physical exam: Do You Have A Psychiatric Provider? Do Y ou Have A Psychiatric Provider?: Yes needs appt Do You Have Any Other Profes sional Supports? Do You Have Any Other Professional Supports?: No Consent Forms Completed Tremaine longo Appointment Consent Forms Completed: None Needed at this time Examination Category Sub-Category Detail Notes Category Not es Mental Status Exam ATTENTION AND CONCENTRATION No defi cits APPEARANCE Disheveled ATTITUDE AND BEHAVIOR Cooperative, Deman ding EYE CONTACT Averted AFFECT Blunted MOOD Irritated INSIGHT Fair, JUDGMENT Poor,
== END | disposition left against medical advice (07) ==
PROVIDERS: Emergency Provider Registered Nurse
DX: F15.10 Other stimulant abuse, uncomplicated (principal)
CPT/HCPCS: 36415; 70450; 80053; 81003; 85025; 93005; 99284

== ENCOUNTER 2025-02-15 14:38 | Emergency (ER) | payer OTHER, SELFPAY ==
[2025-02-15 14:40] VITALS: PULSE 92; RESP 20; TEMP 36.6; O2SAT 97
[2025-02-15 14:56] LABS: Glucose Point of Care 95 mg/dl (65-105)
--- NOTE | 2025-02-15 14:59 | PC.NURSE ---
Pt refuses to got to bathroom to give urine specimen. Pt states I'm not moving. I've been moving all day and I need to rest. . Pt states she hasn't eaten all day and doesn't have a home.
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
[2025-02-15 15:52] LABS: Basophils Absolute Auto 0.1 K/mm3 (0.0-0.1); Basophils Percent Auto 0.6 % (0.2-1.2); Eosinophils Absolute Auto 0.2 K/mm3 (0-0.3); Eosinophils Percent Auto 1.8 % (0-4.4); Hematocrit 40.4 % (37.0-47.0); Hemoglobin 13.1 g/dL (12.0-15.0); Immature Granulocyte Absolute 0.01 K/mm3 (0.00-0.031); Immature Granulocyte Percent A 0.1 % (0-0.5); Lymphocytes Absolute Auto 1.89 K/mm3 (0.9-3.2); Lymphocytes Percent Auto 23.2 % (18.3-44.2); Mean Corpuscular HGB Conc 32.4 g/dl (32-36); Mean Corpuscular Hemoglobin 28.5 pg (26-34); Mean Corpuscular Volume 87.8 fl (80-100); Mean Platelet Volume 8.9 fl (7.4-10.4); Monocytes Absolute Auto 0.6 K/mm3 (0.1-0.6); Monocytes Percent Auto 6.8 % (2.6-8.5); Neutrophils Absolute Auto 5.5 K/mm3 (1.3-6.7); Neutrophils Percent Auto 67.5 % (45.5-73.1); Platelet Count Result 313 k/mm3 (150-375); Red Cell Distribution Width 13.1 % (11.5-14.5); White Blood Count 8.1 K/mm3 (4.5-10.0)
[2025-02-15 16:06] LABS: Alanine Aminotransferase 21 U/L (6-35); Albumin Level 4.5 g/dL (3.5-5.1); Alkaline Phosphatase 89 U/L (38-126); Anion Gap 12 mmol/L (4-12); Aspartate Amino Transferase 22 U/L (14-36); Bilirubin,Total 0.5 mg/dL (0.2-1.3); Blood Urea Nitrogen 13 mg/dL (7-17); Calcium 9.6 mg/dL (8.4-10.2); Carbon Dioxide 21 mmol/L (22-30); Chloride 108 mmol/L (98-107); Estimated Glomerular Filt Rate > 60; Glucose 97 mg/dL (65-110); Potassium 3.9 mmol/L (3.4-5.0); Sodium 141 mmol/L (137-145)
[2025-02-15 16:07] LABS: Ethanol < 10 mg/dL (<10)
[2025-02-15 16:30] LABS: Influenza A QL RT-PCR Negative (Negative); Influenza B QL RT-PCR Negative (Negative); RSV RNA, RT-PCR Negative (Negative); SARS-CoV-2 RNA PCR Negative (Negative)
--- NOTE | 2025-02-15 16:52 | PC.NURSE ---
Sleeping. Continues to refuse to urinate when woke up.
[2025-02-15 17:10] LABS: BEDSIDEPREGUCG Negative (Negative)
[2025-02-15 17:36] LABS: Barbiturate Screen Urine Negative (Negative); Benzodiazepines Screen Urine Negative (Negative)
[2025-02-15 17:40] LABS: Thyroid Stimulating Hormone Reflex 0.473 uIU/mL (0.465-4.68)
[2025-02-15 17:51] LABS: Cannabinoid Screen Urine Negative (Negative); Cocaine Screen Urine Negative (Negative); Methadone Screen Urine Negative (Negative); Opiate Screen Urine Negative (Negative); Phencyclidine Screen Urine Negative (Negative)
[2025-02-15 18:12] LABS: Amphetamine Screen Urine Positive (Negative)
--- OUTSIDE RECORDS SUMMARY | 2025-02-15 19:03 | XMS_ITS | Patient Health Record ---
Author Organization [facility] Address [address] [place] [address] Care Team Providers Care Pocket Grinder Operator Name Role Phone Lizette Kirk Primary Care Provider Briseida RODRIGUEZ Unavailable Unavailable Saray Rodríguez Unavailable [phone] Reason For Referral No Information Problems Problem Type SNOMED Code ICD Code Onset Dates Problem Status W/U Status Risk Notes Problem Methamphetamine abuse (412442822) Methamphetamine abuse (F15.10) Active confirmed Encounters Encounter Location Date Provider Diagnosis [facility] [place] [address] 02/15/2025 Lizette Kirk [address] [address] [place] [address] 02/15/2025 Saray Rodríguez Methamphetamine abus e F15.10 Assessments Encounter Date Diagnosis (ICD Code) Assessment Notes Treatment Notes Treatment Clinical Notes Section Notes 02/15/2025 Methamphetamine abuse (ICD-10 - F15.10) 02/15/2025 Other Clinician met w [facility] client to assess needs for residential services. Clinician gathered information regarding historical presentation of mental health and substance use symptoms including withdrawal, HIV Risk assessment, psychiatric hospitalization history and presenting concern. Clinician conducted PHQ9 and CSSRS assessments as well as social drivers of health screening for the purposes of identifying additional service needs. Plan Of Treatment No Information Insurance Providers Payer Name Payer Address Payer Phone Subscriber Number Group Number Insured Name Patient Relationship to Insured Coverage Start Date Coverage End Date [facility] Attn Claims Department [address] [place] [address] [id number] Layla Gil Self - patient is the insured [facility] Attn Claims Department [address] [place] [address] [phone] [id number] Layla Gil Self - patient is the insured 5
--- OUTSIDE RECORDS SUMMARY | 2025-02-15 19:03 | XMS_ITS ---
Author Organization [facility] Address [address] [place] [address] Care Team Providers Care Boat Hand Name Role Phone Lizette Kirk Primary Care Provider [phone] Briseida RODRIGUEZ Unavailable Unavailable Saray Rodríguez Unavailable [phone] REASON FOR VISIT Detox aTBC Problems Problem Type SNOMED Code ICD Code Onset Dates Problem Status W/U Status Risk Notes Problem Methamphetamine abuse (913178288) Methamphetamine abuse (F15.10) Active confirmed Encounters Encounter Location Date Provider Diagnosis [facility] [address] [place], [place] [address] [address] 02/15/2025 Saray Rodríguez Methamphetamine abus e F15.10 Assessments Encounter Date Diagnosis (ICD Code) Assessment Notes Treatment Notes Treatment Clinical Notes Section Notes 02/15/2025 Methamphetamine abuse (ICD-10 - F15.10) 02/15/2025 Other Clinician met w ith client to assess needs for residential services. Clinician gathered information regarding historical presentation of mental health and substance use symptoms including withdrawal, HIV Risk assessment, psychiatric hospitalization history and presenting concern. Clinician conducted PHQ9 and CSSRS assessments as well as social drivers of health screening for the purposes of identifying additional service needs. Plan Of Treatment Treatment Notes Assessment Notes Other Clinician met with sorin whitehead to assess needs for residential services. Clinician gathered information regarding historical presentation of mental health and substance use symptoms including withdrawal, HIV Risk assessment, psychiatric hospitalization history and presenting concern. Clinician conducted PHQ9 and CSSRS assessments as well as social drivers of health screening for the purposes of identifying additional service needs. Next Appt Details Follow Up: prn, Reason: Progress Notes * Elaine MIXeDOB:1980 (44 yo F)Acc No.[id number]:02/15/2025 UNLOCKED PROGRESS NOTE Patient: Layla GRAVES Provider: Lc Rodríguez LCSW :1980 A ge:44 Y S ex:Female Date:02/15/2025 [facility] [id number] Pcp:Lizette Kirk Subjective: * Chief Complaints: * 1 . Detox aT. * HPI: I nitial: Issues discussed: P T was seen to determine medical appropriateness for the detox unit. Pt reported meth use this morning prior to coming in. Patient became increasing nonresponsive while particicpating in the admissions process and was determined to not be medically appropriate and should be sent out for detox in a hospital setting. . Sorin izaguirre's action: Sorin cole contact [facility] Det[facility] and was informed that this individual was not eligible for their program due DOC being methamphetamine. Due to increased nonresponsiveness, EMS was contacted and patient was taken by ambulance to [facility] Emergency Room. Clinician coordinated with Recovery Support team for additional support post discharge. . P sychiatric Assessment - Current Symptoms: Primary concern today A dmitting today for Detox Residential program. S ubstance Use: Current Use Patterns R eporting methamphetamine use this morning prior to coming in for detox. . S ubstance of Choice M ethamphetamine. H istory of substance use R eports using meth for 20 years. . H x of Withdrawal U nable to assess due to increasing nonresponsiveness. . * Medical History: Objective: * Vitals: * Examination: M ental Status Exam: ATTENTION AND CONCENTRATION I mpaired attention/concentration,Impaired Level of Consciousness. APPEARANCE I nappropriate. ATTITUDE AND BEHAVIOR O ther: increasingly nonresponsive.? EYE CONTACT P oor. AFFECT F lat. Assessment: * Assessment: 1. M ethamphetamine abuse - F15.10 (Primary) Plan: * Treatment: * Procedure Codes: 9 0791 PSYCH DIAGNOSTIC EVALUATION, Modifiers: AJ , CHS08 aT Service, CHS13 Referring to Healthcare Business Analyst * Follow Up: p rn * * Electronic signature of Sagrario Rodríguez on 02/15/2025 at 07:03 PM CDT Sign off status: Pending * Provider: Lc Rodríguez LCSW Date: 0 02/15/2025 Generated for Kandi longo/Nanci/eTransmitting on: 0 02/15/2025 07:03 PM CDT History and Physical Notes * HPI (History of Present Illness) Category Sub-Category Detail Notes Category Not es Initial Issues discussed: PT was seen to determine medical appropriateness for the detox unit. Pt reported meth use this morning prior to coming in. Patient became increasing nonresponsive while particicpating in the admissions process and was determined to not be medically appropriate and should be sent out for detox in a hospital setting. Counselor's action: Clinican contact [facility] Det[facility] and was informed that this individual was not eligible for their program due DOC being methamphetamine. Due to increased nonresponsiveness, EMS was contacted and patient was taken by ambulance to [facility] Emergency Room. Clinician coordinated with Recovery Support team for additional support post discharge. Psychiatric Assessment - Current Symptoms Primary concern today Admitting today for Detox Residential program Substance Use History of substance use Reports using meth for 20 years. Hx of Withdrawal Unable to assess due to increasing nonresponsiveness. Substance of Choice Methamphetamine Current Use Patterns Reporting methamphe tamine use this morning prior to coming in for detox. Examination Category Sub-Category Detail Notes Category Not es Mental Status Exam ATTENTION AND CONCENTRATION Impaired attention/concentration, Impaired Level of Consciousness APPEARANCE Inappropriate ATTITUDE AND BEHAVIOR Other: increasingl y nonresponsive EYE CONTACT Poor AFFECT Flat
--- OUTSIDE RECORDS SUMMARY | 2025-02-15 19:03 | XMS_ITS ---
Author Organization [facility] Address [address] [place] [address] Care Team Providers Care Preform Machine Operator Name Role Phone Lizette Kirk Primary Care Provider Briseida RODRIGUEZ Unavailable Unavailable REASON FOR VISIT Detox Physical - Meth Encounters Encounter Location Date Provider Diagnosis [facility] [address] [place] [place] [address] 02/15/2025 Lizette Kirk Plan Of Treatment No Information Progress Notes * Elaine MIXeDOB:1980 (44 yo F)Acc No.[id number]:02/15/2025 UNLOCKED PROGRESS NOTE DNS Patient: Layla GRAVES Provider: Rebecca Kirk APRN :1980 A ge:44 Y S ex:Female Date:02/15/2025 Address:[address] [place], [place] [id number] Subjective: * Chief Complaints: * 1 . Detox Physical - Meth. * HPI: C linical Opiate Withdrawal Scale (COWS) #1: Time Evaluated _ _. C OW #1 : . R esting Pulse Rate : . S weating : . R estlessness : . B one or Joint aches : . R unny nose or tearing : . G I Upset : . T remor : . Y awning : . A nxiety or Irritability : . G ooseflesh Skin : . S core _ _. M AT induction: Patient self administed _ _ mg of Buprenorphine at __ under the observation of this nurse. C OWS #2: .Time Evaluated _ _. V itals Signs COWS2 : . . Resting Pulse Rate : . . Sweating : . R estlessness : . P upil Size : .?Bone or joint aches : . R unny nose or tearing : . G I Upset : . T remor : . Y awning : . A nxiety or irriitability : . G ooseflesh Skin : .?Score _ _. S ummary: Arrived on: 02/15/25 Use of: Meth- pt. is unable to communicate wit this insurance underwriter. Medical DETOX is recommended at this time. Pt. will not be staying at [facility]. Warm hand-off to [facility]. to facilitate transfer to medical facility. * Medical History: Objective: * Vitals: Assessment: Plan: * Treatment: * * Electronic signature of Zuleyka Kirk , [id number] on 02/15/2025 at 07:02 PM CDT Sign off status: Pending * Provider: Rebecca Kirk APRN Date: 0 02/15/2025 Generated for Kandi longo/Nanci/Joel on: 0 02/15/2025 07:02 PM CDT History and Physical Notes * HPI (History of Present Illness) Category Sub-Category Detail Notes Category Not es MAT induction Patient self administed __ mg of Buprenorphine at __ under the observation of this nurse Clinical Opiate Withdrawal Scale (COWS) #1 Time Evaluated __ Resting Pulse Rate : Sweating : Restlessness : Bone or Joint aches : Runny nose or tearing : GI Upset : Tremor : Yawning : Anxiety or Irritability : Gooseflesh Skin : Score __ COW #1 : COWS #2 .Time Evaluated __ .Resting Pulse Rate : .Sweating : Restlessness : Pupil Size : Bone or joint aches : Runny nose or tearing : GI Upset : Tremor : Yawning : Anxiety or irriitability : Gooseflesh Skin : Score __ Vitals Signs COWS2 : Summary Arrived on: 02/15/25 Use of: Meth- pt. is unable to communicate wit this insurance underwriter. Medical DETOX is recommended at this time. Pt. will not be staying at [facility]. Warm hand-off to [facility]. to facilitate transfer to medical facility.
[2025-02-15] MEDS: ACETAMINOPHEN 500 MG TABLET 1000 MG PO (19:39)
[2025-02-15 22:50] VITALS: BP 84/42; PULSE 60; RESP 15; O2SAT 98
--- NOTE | 2025-02-15 22:52 | PC.NURSE ---
When doing a [place] reassessment patient states that she has had no thoughts, however it was because she was asleep and states I'm trying to stay asleep .
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
--- NOTE | 2025-02-16 02:35 | PC.NURSE ---
Per [facility] they faxed [facility] in [place], [place] and [facility] in [place], [place]. Notified ED charge nurse and patient.
--- NOTE | 2025-02-16 02:38 | PC.NURSE ---
Called Maury at [facility] and advised that patient, who is voluntary, declines placement at their facility.
--- NOTE | 2025-02-16 02:39 | PC.NURSE ---
Notified patient that the other facilities that have been faxed are [facility] in [place], [place] and [facility] in [place], [place]. Patient is okay with going to either of those facilities.
[2025-02-16 07:12] VITALS: BP 115/60; PULSE 88; RESP 16; TEMP 36.6; O2SAT 99
[2025-02-16 07:15] LABS: Glucose Point of Care 94 mg/dl (65-105)
--- NOTE | 2025-02-16 07:21 | PC.NURSE ---
Meal tray ordered for pt
--- NOTE | 2025-02-16 08:40 | PC.NURSE ---
This RN faxed pt paperwork for voluntary admission to [facility] fax # [phone]
--- NOTE | 2025-02-16 10:32 | PC.NURSE ---
This RN spoke with pt after getting pt verbal consent to speak with him. This RN gave update including pt pending transfer to [facility], pt requests to be called with any updates [phone]
[2025-02-16 10:41] VITALS: BP 103/49; PULSE 61; RESP 15; TEMP 36.8; O2SAT 98
--- NOTE | 2025-02-16 10:42 | PC.NURSE ---
Meal tray ordered for pt
--- NOTE | 2025-02-16 12:20 | PC.NURSE ---
Pt informed of pt departure from ED and that pt is traveling by EMS to [place] for continued tx. Pt belongings released to EMS for transport.
[2025-02-16 12:21] VITALS: BP 113/55; PULSE 78; RESP 14; TEMP 37; O2SAT 99
== END 2025-02-16 12:27 ==
PROVIDERS: Registered Nurse; Emergency Provider Physician Assistant
DX: R45.851 Suicidal ideations (principal); F15.10 Other stimulant abuse, uncomplicated; Z20.822 Contact with and (suspected) exposure to COVID-19
CPT/HCPCS: 36415; 80053; 80307; 81025; 82077; 82948; 84443; 85025; 87637; 99285; A9270